=== PATIENT | female | born 1990 | race Caucasian/White ===

== ENCOUNTER 2017-04-18 14:59 | Emergency (ER) | payer SELFPAY ==
[~2017-04-18] VITALS: Ht 154.9 cm; Wt 68.0 kg
[2017-04-18 15:11] VITALS: Ht 154.9 cm; Wt 68.0 kg
[2017-04-18 16:43] LABS: CALCIUM 9.1 mg/dL (8.5-10.1); CARBON DIOXIDE 26.9 mmol/L (21-32); CHLORIDE SERUM 103 mmol/L (98-107); CREATININE SERUM 0.7 mg/dL (0.6-1.0); GFR1 > 60 mL/min; GLUCOSE SERUM 98 mg/dL (74-106); POTASSIUM SERUM 3.3 mmol/L (3.5-5.1); SODIUM SERUM 137 mmol/L (136-145)
[2017-04-18 16:59] LABS: BASOPHIL % 0.6 % (0-2); PLATELET COUNT 275 x10^3mcL (130-400); RED CELL DISTRIBUTION WIDTH 13.2 % (11.5-14.5)
[2017-04-18 17:51] VITALS: BP 101/67
== END 2017-04-18 17:51 | disposition home or self-care (01) ==
LOC: ED 14:59
PROVIDERS: Emergency Medicine
DX: G44.209 Tension-type headache, unspecified, not intractable (principal); K59.00 Constipation, unspecified; R07.9 Chest pain, unspecified
CPT/HCPCS: 36415; J0780; J1885

== ENCOUNTER 2017-04-22 18:41 | Emergency (ER) | payer MEDICAID ==
[~2017-04-22] VITALS: Ht 157.5 cm; Wt 68.0 kg
[2017-04-22 18:48] VITALS: Ht 157.5 cm; Wt 68.0 kg
[2017-04-22 20:54] VITALS: BP 120/81
== END 2017-04-22 20:54 | disposition home or self-care (01) ==
LOC: ED 18:41
DX: S91.311A Laceration without foreign body, right foot, initial encounter (principal); W22.8XXA Striking against or struck by other objects, initial encounter; Y93.01 Activity, walking, marching and hiking; Y99.8 Other external cause status; Y92.89 Other specified places as the place of occurrence of the external cause
CPT/HCPCS: 90715

== ENCOUNTER 2017-04-25 14:29 | Emergency (ER) | payer MEDICAID ==
[~2017-04-25] VITALS: Ht 162.6 cm; Wt 70.3 kg
[2017-04-25 14:39] VITALS: Ht 162.6 cm; Wt 70.3 kg
[2017-04-25 16:55] VITALS: BP 134/90
== END 2017-04-25 17:10 | disposition home or self-care (01) ==
LOC: ED 14:29
DX: T81.33XA Disruption of traumatic injury wound repair, initial encounter (principal); Y92.89 Other specified places as the place of occurrence of the external cause